=== PATIENT | female | born 1950 ===

== ENCOUNTER 2020-11-25 07:30 | Inpatient (IN) | payer OTHER ==
[~2020-11-25] VITALS: Ht 162.6 cm; Wt 150.0 kg
[~2020-11-25 07:30] MED LIST: VASOTEC5 MG PO; XANAX XR0.5 MG PO
[2020-11-25] MEDS ORDERED: ACTOS15 MG (07:42)
[2020-11-25] MEDS ORDERED: JANUVIA100 MG (07:42)
--- NOTE | 2020-11-25 07:43 | NUR ---
PTE REFERIDA POR PORSCHE M PADILLA POR OBSTRUCION SE GISEL S/V YS EUBIAC EN AREA DE OBSERVACION
[2020-11-29] MEDS ORDERED: HYOSCYAMINE0.125 M1 SL (10:24)
[2020-11-29] MEDS ORDERED: DICLOFENAC SODI75 MG PO (10:25)
[2020-11-29] MEDS ORDERED: INTESTINEX680 M1 PO (10:25)
[2020-11-29] MEDS ORDERED: ULTRAM50 MG PO (10:26)
== END 2020-11-29 11:14 | disposition home or self-care (01) | DRG 331 ==
LOC: ER 07:30 → SURH 09:23 → SEC-K 09:23 → SURH 13:09 → SEC-K 15:01 → SURH 15:02
PROVIDERS: ADMIT Surgery; ATTEND Surgery
PROC: 07BC4ZX Excision of Pelvis Lymphatic, Percutaneous Endoscopic Approach, Diagnostic (ICD-10-PCS; 2020-11-26)
PROC: 0DTF4ZZ Resection of Right Large Intestine, Percutaneous Endoscopic Approach (ICD-10-PCS; principal; 2020-11-26 12:45)
DX: C18.2 Malignant neoplasm of ascending colon (principal); E11.9 Type 2 diabetes mellitus without complications; I10 Essential (primary) hypertension; Z20.822 Contact with and (suspected) exposure to COVID-19; Z79.4 Long term (current) use of insulin; F41.9 Anxiety disorder, unspecified

== ENCOUNTER 2022-01-03 12:04 | Inpatient (IN) | payer OTHER ==
[~2022-01-03] VITALS: Ht 162.6 cm; Wt 64.4 kg
[~2022-01-03 12:04] MED LIST changes: +ACTOS15 MG; +DICLOFENAC SODI75 MG PO; +HYOSCYAMINE0.125 M1 SL; +INTESTINEX680 M1 PO; +JANUVIA100 MG; +ULTRAM50 MG PO
[2022-01-03] MEDS ORDERED: VASOTEC2.5 MG (12:25)
[2022-01-09] MEDS ORDERED: HYOSCYAMINE0.125 M1 SL (12:42)
[2022-01-09] MEDS ORDERED: OXYCODONE HCL5 MG PO (12:43)
== END 2022-01-09 14:21 | disposition home or self-care (01) | DRG 330 ==
LOC: ER 12:04 → SURH 18:24
PROVIDERS: ADMIT Surgery; ATTEND Surgery
PROC: BW21ZZZ Computerized Tomography (CT Scan) of Abdomen and Pelvis (ICD-10-PCS; 2022-01-03)
PROC: 0DTB4ZZ Resection of Ileum, Percutaneous Endoscopic Approach (ICD-10-PCS; 2022-01-06)
PROC: 07TC4ZZ Resection of Pelvis Lymphatic, Percutaneous Endoscopic Approach (ICD-10-PCS; 2022-01-06)
PROC: 0DTU4ZZ Resection of Omentum, Percutaneous Endoscopic Approach (ICD-10-PCS; 2022-01-06)
PROC: 0DQ84ZZ Repair Small Intestine, Percutaneous Endoscopic Approach (ICD-10-PCS; 2022-01-06)
PROC: 0DTK4ZZ Resection of Ascending Colon, Percutaneous Endoscopic Approach (ICD-10-PCS; principal; 2022-01-06 21:15)
DX: C17.8 Malignant neoplasm of overlapping sites of small intestine (principal); C78.6 Secondary malignant neoplasm of retroperitoneum and peritoneum; C77.5 Secondary and unspecified malignant neoplasm of intrapelvic lymph nodes; K56.690 Other partial intestinal obstruction; K91.72 Accidental puncture and laceration of a digestive system organ or structure during other procedure; Z20.822 Contact with and (suspected) exposure to COVID-19

== ENCOUNTER 2022-02-22 06:00 | Day surgery (SDC) | payer OTHER ==
[~2022-02-22 06:00] MED LIST changes: +FARXIGA5 MG PO; +OXYCODONE HCL5 MG PO; +VASOTEC2.5 MG
[2022-02-22] MEDS ORDERED: ULTRAM50 MG PO (09:46)
== END 2022-02-22 10:30 | disposition home or self-care (01) ==
LOC: CIR.AMB 06:00
PROVIDERS: ATTEND Surgery
DX: C18.4 Malignant neoplasm of transverse colon (principal); Z88.0 Allergy status to penicillin; E78.5 Hyperlipidemia, unspecified; G62.9 Polyneuropathy, unspecified; C77.2 Secondary and unspecified malignant neoplasm of intra-abdominal lymph nodes

== ENCOUNTER 2022-04-13 17:10 | Inpatient (IN) | payer OTHER ==
[~2022-04-13] VITALS: Ht 162.6 cm; Wt 68.0 kg
== END 2022-05-01 14:36 | disposition home or self-care (01) | DRG 357 ==
LOC: ER 17:10 → SEC-K 23:13 → SURG 23:13 → SURH 23:13 → SURG 04-24 09:39
PROVIDERS: ADMIT Surgery; ATTEND Surgery
PROC: BW21YZZ Computerized Tomography (CT Scan) of Abdomen and Pelvis using Other Contrast (ICD-10-PCS; 2022-04-13)
PROC: 02HV33Z Insertion of Infusion Device into Superior Vena Cava, Percutaneous Approach (ICD-10-PCS; 2022-04-15)
PROC: 0WBF0ZX Excision of Abdominal Wall, Open Approach, Diagnostic (ICD-10-PCS; principal; 2022-04-28 08:45)
DX: K56.690 Other partial intestinal obstruction (principal); C18.4 Malignant neoplasm of transverse colon; C79.89 Secondary malignant neoplasm of other specified sites; C77.2 Secondary and unspecified malignant neoplasm of intra-abdominal lymph nodes; C80.0 Disseminated malignant neoplasm, unspecified; R18.8 Other ascites; R14.0 Abdominal distension (gaseous); E11.9 Type 2 diabetes mellitus without complications; Z79.4 Long term (current) use of insulin; I10 Essential (primary) hypertension; Z20.822 Contact with and (suspected) exposure to COVID-19